=== PATIENT | male | born 1945 | race Caucasian/White ===

== ENCOUNTER 2017-07-31 05:17 | Observation (INO) | payer OTHER ==
[2017-07-31] MEDS ORDERED: GABAPENTIN 300 MG CAP PO ONE (05:33)
[2017-07-31] MEDS ORDERED: ACETAMINOPHEN 500 MG TAB PO ONE (05:33)
[2017-07-31] MEDS ORDERED: ceFAZolin 2 GM/SWFI 2 GM/20 ML SYR IVP ONE (05:33)
[2017-07-31] MEDS ORDERED: LIDOCAINE 1% 2 ML INJ ID PRN (05:34)
[2017-07-31] MEDS ORDERED: LR 1,000 ML IV ONE (05:34)
[2017-07-31] MEDS ORDERED: SURGIFLO MATRIX KIT WITH THROMBIN 8ml TP ONE ×2 (06:34→06:35)
[2017-07-31] MEDS ORDERED: THROMBIN (BOVINE) 20,000 UNIT VIAL TP ONE (06:34)
[2017-07-31] MEDS ORDERED: CHLORHEXIDINE GLUC HIBICLENS 118 ML BTL TP ONE (06:35)
[2017-07-31] MEDS ORDERED: BACITRACIN 50,000 UNITS/10 ML SYR IRR ONE ×2 (06:35→07:34)
[2017-07-31] MEDS ORDERED: BUPIVACAINE 0.5% 30 ML SDV ONE (06:36)
[2017-07-31] MEDS ORDERED: PROPOFOL/EMULSION 500 MG/50 ML BOTTLE IV ONE (07:03)
--- NOTE | 2017-07-31 07:03 | PDHPUP ---
History & Physical Update H&P update statement: This history and physical update is based on an assessment of the patient which was completed after admission or registration (within 24 hours), but prior to the surgery/procedure. H&P update: H&P reviewed & patient examined, no change in patient's condition since H&P completed (Consents signed and site marked. All questions answered.)
[2017-07-31] MEDS ORDERED: fentaNYL 250 MCG/5 ML INJ ONE (07:06)
[2017-07-31] MEDS ORDERED: MIDAZOLAM 2 MG/2 ML VIAL IVP ONE (07:10)
[2017-07-31] MEDS ORDERED: MIDAZOLAM 2 MG/2 ML VIAL ONE (07:10)
[2017-07-31] MEDS ORDERED: PROPOFOL 200 MG/20 ML VIAL ONE ×2 (07:16→08:59)
--- NOTE | 2017-07-31 07:38 | PDANEPAE ---
ANE History of Present Illness 72 year old male for C3-4 anterior fusion and R CTR. ANE Past Medical History - Cardiovascular History Hx Hypertension: No Hx Arrhythmias: No Hx Chest Pain: No Hx Coronary Artery / Peripheral Vascular Disease: Yes Hx CHF / Valvular Disease: No Hx Palpitations: No Cardiovascular History Comment: HX- [place]. CARDIAC STENTS 4-5 YRS AGO X3 - Pulmonary History Hx COPD: No Hx Asthma/Reactive Airway Disease: No Hx Recent Upper Respiratory Infection: No Hx Oxygen in Use at Home: No Hx Sleep Apnea: Yes Sleep Apnea Screening Result - Last Documented: Positive Pulmonary History Comment: POS SLEEP APNEA - NO CPAP - Neurologic History Hx Cerebrovascular Accident: No Hx Seizures: No Hx Dementia: No - Endocrine History Hx Diabetes: No - Renal History Hx Renal Disorders: No - Liver History Hx Hepatic Disorders: No - Neurological & Psychiatric Hx Hx Neurological and Psychiatric Disorders: No - Cancer History Hx Cancer: No - Congenital Disorder History Hx Congenital Disorders: No - GI History Hx Gastrointestinal Disorders: No - Other Health History Other Health History: NEG - Chronic Pain History Chronic Pain: Yes (NECK PAIN) - Surgical History Prior Surgeries: R TKA. ANKLE REPAIR ANE Review of Systems Review of systems is: negative Review of Systems: - Exercise capacity METS (RN): 4 METS ANE Patient History - Allergies Allergies/Adverse Reactions: No Known Allergies Allergy (Unverified 07/11/17 10:09) - Home Medications Home Medications: Aspirin [Aspirin 81mg (*)] 81 mg PO HS 07/11/17 [Last Taken 07/24/17] Atorvastatin Calcium [Lipitor 40 mg (*)] 40 mg PO HS 07/11/17 [Last Taken ] Herbals/Supplements -Info Only 1 ea PO DAILY 07/11/17 [Last Taken 07/24/17] Alpha-3 Fatty Acids [Fish Oil 1000 mg (*)] 1,000 mg PO DAILY 07/11/17 [Last Taken 07/24/17] Tetrahydrozoline 0.05% [Visine (*)] 1 drops OP DAILY PRN 07/11/17 [Last Taken Unknown] Vitamin B Complex [B Complex] 1 each PO DAILY 07/11/17 [Last Taken 07/29/17] diphenhydrAMINE [Benadryl 25 MG (*)] 25 mg PO DAILY PRN 07/11/17 [Last Taken Unknown] - NPO status NPO Since - Liquids (Date): 07/30/17 NPO Since - Liquids (Time): 23:55 NPO Since - Solids (Date): 07/30/17 NPO Since - Solids (Time): 23:55 - Smoking Hx Smoking Status: Former smoker - Family Anes Hx Family Hx Anesthesia Complications: NEG ANE Labs/Vital Signs - Vital Signs Blood Pressure: 118/70 Heart Rate: 67 Respiratory Rate: 16 O2 Sat (%): 94 Height: 182.88 cm Weight: 86.183 kg ANE Physical Exam - Airway Neck exam: FROM Mallampati Score: Class 2 Mouth exam: normal dental/mouth exam - Pulmonary Pulmonary: no respiratory distress - Cardiovascular Cardiovascular: regular rate and rhythym - ASA Status ASA Status: II ANE Anesthesia Plan Anesthesia Plan: general endotracheal anesthesia
[2017-07-31] MEDS ORDERED: HYDROmorphONE/DILAUDID 1 MG/ML INJ IVP PRN ×2 (07:39→16:00)
[2017-07-31] MEDS ORDERED: HYDROCODONE/APAP 5/325 TAB PO PRN (07:39)
[2017-07-31] MEDS ORDERED: NALOXONE HCL 0.4 MG/ML INJ IVP PRN (07:39)
[2017-07-31] MEDS ORDERED: PROMETHAZINE HCL 25 MG/ML INJ IVP PRN (07:39)
[2017-07-31] MEDS ORDERED: LR 500 ML IV PRN (07:39)
[2017-07-31] MEDS ORDERED: METOCLOPRAMIDE 10 MG/2 ML VIAL IVP PRN (07:39)
[2017-07-31] MEDS ORDERED: fentaNYL 100 MCG/2 ML INJ IVP PRN (07:39)
[2017-07-31] MEDS ORDERED: MEPERIDINE 25 MG/ML SYR IVP PRN (07:39)
[2017-07-31] MEDS ORDERED: ONDANSETRON 4 MG/2 ML VIAL IVP PRN ×2 (07:39→12:54)
[2017-07-31] MEDS ORDERED: LABETALOL HCL 5 MG/ML 20 ML MDV IVP PRN (07:39)
[2017-07-31] MEDS ORDERED: ALBUTEROL 3 ML DEYVIAL IH PRN (07:39)
[2017-07-31] MEDS ORDERED: TETRAHYDROZOLINE 0.05% 15 ML OPHT.BTL OP PRN ×2 (09:38→11:10)
--- NOTE | 2017-07-31 09:50 | POSTOPPROG ---
Post Op Note Date of Operation: 07/31/17 Surgeon: Cody Bella Engineer Second Assistant: Brittney Mccormick PA-C Anesthesiologist: Tim Anesthesia: GET(General Endotracheal) Pre-op Diagnosis: cervical stenosis, carpal tunnel syndrome Post-op Diagnosis: same Indication: nerve compression, spinal cord compression Procedure: R carpal tunnel release, C34 ACDF Findings: Please see dictation Inf/Abcess present in the surg proc area at time of surgery?: No Depth: Organ Space EBL: 50-100 Complications: none Specimen(s): none PA Addendum - Addendum .: S: Pt in PACU, denies pain O: Groggy but following commands PERRL NAD VSS MAEx4 R wrist in splint Motor 5/5 BUE/BLE +LT Incisions dressed cdi A: 72 yo M s/p R carpal tunnel release, C34 ACDF 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
--- NOTE | 2017-07-31 09:59 | POSTANESTH ---
Post Anesthetic Evaluation Cardiovascular Status: Normal, Stable Respiratory Status: Normal, Stable Level of Consciousness/Mental Status: Can Participate in Eval Pain Control: Adequate, Prn Tx Ordered Nausea/Vomiting Control: Adequate, Prn Tx Ordered Complications Possibly Related to Anesthesia: None Noted
[2017-07-31] MEDS ORDERED: CYCLOBENZAPRINE 10 MG TAB PO PRN (11:11)
[2017-07-31] MEDS ORDERED: HYDROmorphONE/DILAUDID 2 MG/ML INJ IVP PRN (11:13)
[2017-07-31] MEDS: oxyCODONE IR 5 MG TAB PO PRN ×4 (11:22→22:42)
[2017-07-31] MEDS ORDERED: LACTULOSE 20 GM/30 ML UDCUP PO PRN (12:54)
[2017-07-31] MEDS ORDERED: ONDANSETRON DISINTEGRATING 4 MG TAB PO PRN (12:54)
[2017-07-31] MEDS ORDERED: POLYETHYLENE GLYCOL 3350 17 GM PKT PO PRN (12:54)
[2017-07-31] MEDS ORDERED: diphenhydrAMINE 25 MG CAP PO PRN (12:54)
[2017-07-31] MEDS ORDERED: BISACODYL 10 MG SUPP PR PRN (12:54)
[2017-07-31] MEDS ORDERED: MAGNESIUM HYDROXIDE 30 ML UDCUP PO PRN (12:54)
[2017-07-31] MEDS ORDERED: NS W/ 20 KCl/L 1,000 ML IV SCH (13:00)
--- NOTE | 2017-07-31 13:42 | GOP ---
[f rep st] OPERATIVE REPORT DATE OF OPERATION: 07/31/2017 SURGEON: Cody Bella MD NEUROSURGEON: Cody Bella MD CLAY CASTER: Chandrika Mccormick. ANESTHESIA: General. PREOPERATIVE DIAGNOSIS: 1. Right-sided median nerve entrapment with carpal tunnel syndrome on the right. 2. 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 3. Treatment refractory to nonoperative intervention. POSTOPERATIVE DIAGNOSIS: 1. Right-sided median nerve entrapment with carpal tunnel syndrome on the right. 2. 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 3. Treatment refractory to nonoperative intervention. PROCEDURE PERFORMED: 1. Right-sided median nerve release (carpal tunnel release on the right). 2. Anterior arthrodesis with approach to C3-C4. 3. C3-C4 diskectomy with bilateral foraminotomies, osteophytectomies, and interbody fusion using an 8 x 14 x 11 mm titanium-coated PEEK cage with morselized autograft and allograft. 4. Anterior cervical fusion, C3-C4, with a 19 mm Medtronic Zevo plate. 5. Use of intraoperative fluoroscopy, less than 1 hour physician time. 6. Use of neuromonitoring. 7. Use of operative microscope. FINDINGS: per imaging SPECIMENS: None. INDICATIONS: Mr. Muller is a 72-year-old gentleman who presented to my office with right-sided carpal tunnel syndrome and spinal stenosis, C3-C4 with cord signal changes. He had evidence of myelopathy and weakness. After discussion of risks, benefits, and treatment alternatives, we decided to proceed forth with surgery as described above. DESCRIPTION OF PROCEDURE: Patient was brought to the operating theater and underwent general endotracheal anesthesia without complications. He had Venodynes, SKY hose, and the appropriate lines placed by anesthesia. The right arm was extended on the right armboard . An incision was marked on line with the 3rd and 4th fingers of the right hand and just distal to the wrist crease. This area was then prepped and draped in usual sterile surgical fashion. A time -out was completed per protocol and the patient received antibiotics within 1 hour of incision. The right arm was exsanguinated and a cuff inflated just above the right elbow. We then infiltrated the incision with Marcaine with epinephrine. The incision was taken down with the scalpel blade through the subcutaneous tissues and across the transverse carpal ligament to identify the median nerve. The median nerve was quite entrapped on manual palpation. We then cut the transverse carpal ligament using the tenotomy scissors, both proximally and distally, until the nerve felt well decompressed on manual palpation. We let down the cuff and irrigated jai wound copiously with bacitracin irrigation. We then closed the wound with a vertical mattress nylon stitches. At this point, the patient's arms were tucked and his head was extended on the table. The patient's pressure points were all padded. Using lateral fluoroscopy and a spinal needle, we picked our entry point at the C3-C4 level. This was marked as a transverse incision on the right side of his neck. This area was prepped and draped in the usual sterile surgical fashion. Another time -out was completed per protocol. The patient had already received antibiotics within 1 hour of incision. The incision was taken down with the scalpel blade and using monopolar, taken down through subcutaneous tissues to the level of platysma. The platysma was overmined in the cranial and caudal directions. A Weitlaner was placed to maintain our exposure. Using both sharp and blunt dissection, we traveled in a plane medial to the carotid sheath and lateral to the esophagus and trachea to reach the prevertebral fascia. We placed a bayonetted needle into disk spaces C3-C4. We confirmed our level using lateral fluoroscopy. We elevated the longus coli muscle from the anterior vertebral bodies of C3-C4 and deep retractors were then placed to maintain our exposure. The microscope was brought into the field to assist with microscopic dissection and to maintain illumination and magnification. Avon pins were placed into vertebral bodies of C3 and C4 and C3-C4 placed in mild distraction. We completed a C3-C4 diskectomy with bilateral foraminotomies and osteophytectomies. We prepared the cartilaginous endplates and measured interbody space. We placed an 8 x 14 x 11 mm titanium coated PEEK cage filled with morselized autograft and allograft into the C3-C4 disk space. We removed the Avon pins and drilled down the anterior osteophytes. We secured a 19 mm Medtronic Zevo plate into the vertebral bodies of C3, C4. AP and lateral x-rays demonstrated good placement of the hardware. We obtained hemostasis with bipolar and the wound was irrigated copiously with bacitracin irrigation. The wound was closed in multiple layers using Vicryl sutures for the deep layers and Dermabond for the skin. The patient's wounds were dressed sterilely. He was awakened, extubated and taken to the recovery room in stable condition. There were no complications and no noted changes on neuromonitoring throughout the procedure. COMPLICATIONS: None. ESTIMATED FLUID LOSS: 10 mL. /[id number]/MODL MTDD
[2017-07-31] MEDS: ACETAMINOPHEN 500 MG TAB PO SCH ×2 (13:43→22:39)
[2017-07-31] MEDS: ceFAZolin 2 GM/DEXTROSE 100 ML IV SCH ×2 (13:44→22:40)
[2017-07-31 19:48] VITALS: RESP 16
[2017-07-31] MEDS ORDERED: ATORVASTATIN CALCIUM 40 MG TAB PO SCH (21:00)
[2017-07-31] MEDS: FAMOTIDINE 20 MG TAB PO SCH (22:39)
[2017-07-31] MEDS: SENNOSIDES/DOCUSATE SODIUM TAB PO SCH (22:40)
[2017-08-01] MEDS: ACETAMINOPHEN 500 MG TAB PO SCH (05:10)
[2017-08-01] MEDS ORDERED: FLU VACC QS 2017-18 (3YR+)/PF 0.5 ML SYR (FLUARIX QUAD) IM ONE (06:00)
[2017-08-01] MEDS ORDERED: PNEUMOC 13-VAL CONJ-DIP CRM/PF 0.5 ML SYR IM ONE (06:00)
--- NOTE | 2017-08-01 08:02 | NEUSURGPN ---
Date of Surgery: 07/31/17 Post Op Day: 1 Assessment/Plan: 72 yo male s/p right carpal tunnel release and ACDF at C3/4 - neuro stable - pain controlled with oxycodone/flexeril - postop C-spine x-rays pending - no collar - no drain - PT/OT/SUPERVISOR SAMPLE PREPARATION - SCDs/TEDs, Lovenox to start POD#3 - dispo: plan for home this afternoon Discussed with Dr. Bella. Subjective: Having posterior neck pain. Numbness/tingling slightly improved in hand. Objective: Awake. Alert. PERRL. EOMI Speech fluent Muscle strength full at 5/5 Sensation intact Incisions with dressings c/d/i - Physician Discussed Patient with : [facility] Neurosurgery Physical Exam - Vitals, I&O, Labs I and O 07/31/17 08/01/17 08/02/17 05:59 05:59 05:59 Intake Total 1800 Output Total 1175 Balance 625 Weight 86.183 kg Intake: Oral (ml) 500 IV Intake (ml) 1200 IV Infused (ml) 100 ceFAZolin 2 GM/DEXTROSE 100 100 ml @ 200 mls/hr IV Q8HRS TWILA Rx#:[id number] Output: Urine (ml) 1175 Urinal 1175 Other: Number of Voids Toilet 1 Urinal 1 Vital Signs Temp Pulse Resp BP Pulse Ox 36.7 C 63 16 117/71 94 08/01/17 07:23 08/01/17 07:23 08/01/17 07:23 08/01/17 07:23 08/01/17 07:23 ICD10 Worksheet Patient Problems: Problems Problem Status Onset Carpal tunnel syndrome of right wrist Acute Cervical spondylosis Acute - ICD10 Problem Qualifiers (1) Cervical spondylosis Qualifiers: Spinal osteoarthritis complication: with myelopathy Qualified Code(s): M47.12 - Other spondylosis with myelopathy, cervical region (2) Carpal tunnel syndrome of right wrist
[2017-08-01] MEDS: SENNOSIDES/DOCUSATE SODIUM TAB PO SCH (08:36)
[2017-08-01] MEDS: FAMOTIDINE 20 MG TAB PO SCH (08:36)
--- NOTE | 2017-08-01 09:32 | ASMTCMCOM ---
CM Note CM Note Notes: 08/01/2017 Case Management Note Reviewed chart. There are no case management d/c needs identified d/t pt age and marital status and PT/OT recommendations. PT is recommending outpatient rehab. OT eval states pt is independent in ADL's. Case Management d/c poc: independent with follow up as directed. Case Management available if needs change. Date Signed: 08/01/2017 09:32 AM Electronically Signed By:Zoraida Hines RN
[2017-08-01 12:03] VITALS: BP 125/70; PULSE 85; TEMP 98
[2017-08-01 14:36] VITALS: O2SAT 92
--- NOTE | 2017-08-01 15:57 | ASDISCHSUM ---
Discharge Information Plan Status:Home with No Needs Medically Cleared to Leave: Discharge Date:08/01/2017 02:43 PM CM D/C Disposition:Home, Routine, Self-Care ADT D/C Disposition:Home, Routine, Self-Care Projected Discharge Date:08/01/2017 02:43 PM Transportation at D/C: Discharge Delay Reason: Follow-Up Date:08/01/2017 02:43 PM Discharge Slot: Final Diagnosis: Placement Information Patient Contact Information Contact Name:KATIEBrittney Relationship: Address: Home Phone: Work Phone: City: Alternate Phone: State/Zip Code: Email: Financial Information Financial Class: Primary Plan Desc:MEDICARE OUTPATIENT Primary Plan Number:[id number] Secondary Plan Desc:[facility] Secondary Plan Number:[id number] Assessment Information [facility] CM Progress Note CM Note CM Note Notes: 08/01/2017 Case Management Note Reviewed chart. There are no case management d/c needs identified d/t pt age and marital status and PT/OT recommendations. PT is recommending outpatient rehab. OT eval states pt is independent in ADL's. Case Management d/c poc: independent with follow up as directed. Case Management available if needs change. Date Signed: 08/01/2017 09:32 AM Electronically Signed By:Zoraida Hines RN Intervention Information
[2017-08-03] MEDS ORDERED: ENOXAPARIN 40 MG/0.4 ML SYR SC SCH (09:00)
== END 2017-08-01 14:43 | disposition home or self-care (01) ==
LOC: F3N 05:17
PROVIDERS: ADMIT Neurological Surgery; ATTEND Neurological Surgery
PROC: 0RG10A0 Fusion of Cervical Vertebral Joint with Interbody Fusion Device, Anterior Approach, Anterior Column, Open Approach (ICD-10-PCS; principal; 2017-07-31 07:15)
PROC: 0RB30ZZ Excision of Cervical Vertebral Disc, Open Approach (ICD-10-PCS; principal; 2017-07-31 07:15)
PROC: 01N50ZZ Release Median Nerve, Open Approach (ICD-10-PCS; principal; 2017-07-31 07:15)
PROC: 00NW0ZZ Release Cervical Spinal Cord, Open Approach (ICD-10-PCS; principal; 2017-07-31 07:15)
DX: G56.01 Carpal tunnel syndrome, right upper limb (principal); M47.12 Other spondylosis with myelopathy, cervical region; M48.02 Spinal stenosis, cervical region; M54.2 Cervicalgia; Z87.891 Personal history of nicotine dependence; Z96.651 Presence of right artificial knee joint; Z95.5 Presence of coronary angioplasty implant and graft; M50.321 Other cervical disc degeneration at C4-C5 level; G95.89 Other specified diseases of spinal cord; I25.10 Atherosclerotic heart disease of native coronary artery without angina pectoris; E78.5 Hyperlipidemia, unspecified; Z95.0 Presence of cardiac pacemaker; Z79.82 Long term (current) use of aspirin; I25.2 Old myocardial infarction
CPT/HCPCS: 20936; 22551; 22845; 64721; 72040; 76001; 90670; 90686; 92610; 97161; 97165; C1713; G0008; G0009; G8978; G8979; G8980; G8987; G8988; G8989; G8996; G8997; J0690; J2250; J2704; J3010